=== PATIENT | male | born 1965 | race Two or more races ===

== ENCOUNTER 2025-08-10 17:10 | Outpatient (CLI) | payer BC ==
--- NOTE | 2025-08-10 19:19 | RADIOLOGY REPORT ---
EXAM: MR MRI LUMBAR SPINE CLINICAL HISTORY: LOW BACK PAIN, UNSPECIFIED COMPARISON: None TECHNIQUE: MRI imaging of the lumbar was performed on a MRI imaging system without intravenous contrast. FINDINGS: Please note, confirmation of appropriate numbering is suggested prior to any intervention. There is no acute displaced fracture. There is mild loss of intervertebral disc height at L5-S1. There are minimal endplate degenerative changes. There is nonspecific heterogeneity of the bone marrow most pronounced within the sacrum. The conus terminates at L1 and is unremarkable in appearance. The paraspinal soft tissues are unremarkable. At the T12-L1 level, there is no evidence of central spinal canal or neuroforaminal stenosis. At the L1-L2 level, there is no evidence of central spinal canal or neuroforaminal stenosis. There is facet arthropathy. At the L2-L3 level, there is no evidence of central spinal canal or neuroforaminal stenosis. There is facet arthropathy. At the L3-L4 level, a broad-based disc protrusion effaces the thecal sac. Posterior to the L4 vertebral body, there is a small probable disc sequestration measuring 7 mm, effacing the right aspect of the thecal sac and right lateral recess with probable contact of the underlying nerve root. There is facet arthropathy. At the L4-L5 level, a broad-based disc protrusion effaces the thecal. There is a probable right foraminal component. There is effacement of the right lateral recess and possible contact of the underlying nerve roots. There is facet arthropathy. There is mild bilateral neural foraminal stenosis. At the L5-S1 level, a mild disc protrusion effaces the thecal sac. There is mild bilateral neural foraminal stenosis. IMPRESSION: 1. Small probable right-sided disc sequestration located posterior to the L4 vertebral body, with mass effect and possible contact of the underlying nerve root as detailed. 2. Additional degenerative changes of the lumbar spine as detailed.
== END 2025-08-10 23:59 | disposition home or self-care (01) ==
LOC: MRI 17:10
PROVIDERS: ATTEND Anesthesiology
DX: M51.379 Other intervertebral disc degeneration, lumbosacral region without mention of lumbar back pain or lower extremity pain (principal); M54.50 Low back pain, unspecified; M48.07 Spinal stenosis, lumbosacral region; M47.816 Spondylosis without myelopathy or radiculopathy, lumbar region
CPT/HCPCS: 72148